=== PATIENT | male | born 1995 | race Caucasian/White ===

== ENCOUNTER 2023-11-11 22:49 | Emergency (ER) | payer MEDICAID ==
[~2023-11-11] VITALS: Ht 172.7 cm; Wt 68.9 kg
[2023-11-11 22:59] VITALS: BP_SYST 139; PULSE 68; RESP 19; TEMP 97.3; O2SAT 100
[2023-11-11 23:43] LABS: BARBITURATE, URINE NEGATIVE (NEG <=200); BENZODIAZEPINE, URINE NEGATIVE (NEG <=150); CANNABINOID, URINE NEGATIVE (NEG <=50); COCAINE, URINE NEGATIVE (NEG <=150); METHAMPHETAMINES SCREEN,URINE NEGATIVE (NEG <=500); OPIATE, URINE NEGATIVE (NEG <=100); PHENCYCLIDINE SCREEN,URINE NEGATIVE (NEG <=25); UR TRICYCLIC ANTIDEPRESSANTS NEGATIVE (NEG <=300); URINE AMPHETAMINE NEGATIVE (NEG <=500); URINE METHADONE NEGATIVE (NEG <=200); URINE OXYCODONE SCREEN NEGATIVE (NEG <=100)
[2023-11-12 00:28] LABS: ALBUMIN 3.4 g/dL (3.4-4.8); BILIRUBIN,DIRECT 0.1 mg/dL (0.0-0.3); CALCIUM 8.4 mg/dL (8.4-11.0); CREATININE 1.02 mg/dL (0.55-1.30); POTASSIUM 3.5 mmol/L (3.5-5.1); TOTAL BILIRUBIN 0.6 mg/dL (0.0-1.0); TOTAL PROTEIN, SERUM 6.5 g/dL (6.4-8.3)
[2023-11-12] MEDS: NACL 0.9% 1,000 ML IV ONE (00:34)
[2023-11-12 01:10] VITALS: BP_SYST 139; PULSE 68; RESP 19; TEMP 97.3; O2SAT 100
[2023-11-12 01:16] LABS: BASOPHILS # (AUTO) 0.1 K/uL (0.0-0.2); BASOPHILS % (AUTO) 0.9 % (0.0-2.0); EOSINOPHILS # (AUTO) 0.1 K/uL (0.0-0.4); EOSINOPHILS % (AUTO) 1.3 % (0.0-4.0); HEMATOCRIT 41.4 % (36-54); HEMOGLOBIN 15.2 g/dL (14.0-18.0); LYMPHOCYTES # (AUTO) 3.2 K/uL (1.0-5.5); LYMPHOCYTES % (AUTO) 45.6 % (20.5-51.5); MEAN CORPUSCULAR HEMOGLOBIN 34 pg (27-31); MEAN CORPUSCULAR HGB CONC 37 % (32-36); MEAN CORPUSCULAR VOLUME 91 fL (79.0-98.0); MONOCYTES # (AUTO) 0.8 K/uL (0.0-1.0); MONOCYTES % (AUTO) 10.9 % (1.7-9.3); NEUTROPHILS # (AUTO) 2.9 K/uL (1.8-7.7); NEUTROPHILS % (AUTO) 41.3 % (40.0-70.0); RED CELL DISTRIBUTION WIDTH 12.8 % (9.0-15.0)
[2023-11-12 01:54] LABS: PLATELET COUNT (AUTO) 108 K/uL (130-430)
[2023-11-12 01:55] LABS: RED BLOOD CELL COUNT(AUTO) 4.54 MIL/uL (4.2-6.2)
== END 2023-11-12 01:10 | disposition home or self-care (01) ==
LOC: SED 22:49
DX: E86.0 Dehydration (principal); R53.1 Weakness
CPT/HCPCS: 99283; 80307; 80076; 80048; 82550; 85025; 36415; 96360; J7030

== ENCOUNTER 2023-11-24 21:21 | Emergency (ER) | payer MEDICAID ==
[~2023-11-24] VITALS: Ht 172.7 cm; Wt 68.9 kg
[2023-11-24 21:43] VITALS: BP_SYST 111; PULSE 64; RESP 18; TEMP 98.1; O2SAT 100
[2023-11-24 22:15] LABS: BILIRUBIN,URINE NEGATIVE (NEGATIVE); BLOOD, URINE NEGATIVE (NEGATIVE); CLARITY/URINE CLEAR (CLEAR); COLOR,URINE YELLOW (YELLOW); GLUCOSE,URINE NEGATIVE (NEGATIVE); KETONES,URINE NEGATIVE (NEGATIVE); LEUKOCYTE ESTERASE ,URINE NEGATIVE (NEGATIVE); NITRITE, URINE NEGATIVE (NEGATIVE); PROTEIN URINE NEGATIVE (NEGATIVE)
[2023-11-24] MEDS ORDERED: DIF100 PO (22:41)
[2023-11-24 22:58] VITALS: BP_SYST 115; PULSE 65; RESP 20; TEMP 97.8; O2SAT 100
== END 2023-11-24 22:47 | disposition home or self-care (01) ==
LOC: SED 21:21
DX: B37.42 Candidal balanitis (principal); Z79.899 Other long term (current) drug therapy
CPT/HCPCS: 81001; 81003; 99283